=== PATIENT | female | born 1945 | race Caucasian/White ===

== ENCOUNTER → 2017-08-11 | Outpatient (CLI) | payer OTHER ==
[~2017-08-11] MED LIST: ADVIL PM CAPLE1 EACH; ASPIR 8181 MG PO; ASPIRIN; B-100 COMPLEX1 EAC1 PO; CELEBREX50 MG PO; CELEXA20 MG PO; CRESTOR20 MG PO; FEMARA2.5 MG PO; FISH OIL 1,001000 M2 PO; FISHOIL; FLAGYL500 MG PO; GABAPENTIN 100100 MG PO; GLUCOPHAGE XR500 MG PO; HYDROCHLOROTHIA25 M2 PO; INDOMETHACIN 5050 MG PO; KEFLEX500 M1 PO; LIPITOR 20 MG T20 M1 PO; LIPITOR80 MG PO; LISINOPRIL20 MG PO; LOPRESSOR100 M1 PO; LOPRESSOR25 PO; MECLIZINE HCL25 M1 PO; NEXIUM40 MG PO; NORCO 5-325 TA1 EAC1 PO; NORVASC 5 MG TAB5 MG PO; NORVASC10 MG PO; OXYCODONE HCL 55 MG PO; PERCOCET 5-3251 EACH PO; PIOGLITAZONE15 MG PO; PROTONIX40 M2 PO; TRAMADOL 50 MG50 MG PO; TRICOR145 MG PO; TUMS PO; VICODIN; VITAMIN B-12500 MCG PO; VITAMIN C + RO500 MG PO; VITAMIN D2000 UNIT PO; VITAMIN D400 UNI1 PO; ZOFRAN ODT4 MG PO
== END ==
LOC: M.RAD 09:49
DX: Z12.31 Encounter for screening mammogram for malignant neoplasm of breast (principal)

== ENCOUNTER → 2017-08-18 | Outpatient (CLI) | payer OTHER | LOC: M.RAD 08-14 13:27 | DX: R92.8 Other abnormal and inconclusive findings on diagnostic imaging of breast (principal) ==

== ENCOUNTER 2017-12-05 08:53 | Inpatient (IN) | payer OTHER ==
[~2017-12-05] VITALS: Ht 160 cm; Wt 80.3 kg
[2017-12-05 11:12] VITALS: BP 169/67
[2017-12-05 11:21] LABS: CALCIUM 9.1 mg/dL (8.5-10.1); CREATININE 0.8 mg/dL (0.6-1.3); POTASSIUM 3.7 mmol/L (3.5-5.1)
[2017-12-05 11:34] LABS: ABSOLUTE BASOPHILS 0.1 thou/uL (0.0-0.2); ABSOLUTE EOSINOPHILS 0.2 thou/uL (0.0-0.7); ABSOLUTE LYMPHOCYTES 2.1 thou/uL (0.8-5.3); ABSOLUTE MONOCYTES 0.7 thou/uL (0.0-1.2); ABSOLUTE NEUTROPHILS 6.4 thou/uL (1.6-8.1); BASOPHILS 0.7 %; EOSINOPHILS 2.3 %; HEMOGLOBIN 14.5 gm/dL (12.0-15.0); LYMPHOCYTES 22.3 %; MCH 31.2 pg (26.0-34.0); MCHC 32.9 g/dL (28.0-37.0); MCV 94.8 fL (80.0-100.0); MONOCYTES 7.4 %; NUCLEATED RBCS 0 /100WBC; PLATELET COUNT* 239 thou/uL (150-400); POLYS 67.3 %; RBC 4.65 mil/uL (4.20-5.00); RDW-CV 13.8 % (10.5-14.5); WBC 9.6 thou/uL (4.0-11.0)
--- NOTE | 2017-12-05 14:37 | EKG ---
[place] [address] ELECTROCARDIOGRAM REPORT Name: MARGARITAKERMITHARPREET Room: [place] [address] ADM IN M.R.#: [id number] Admission: 12/05/17 Attend Phys: Lilly Powell Discharge: Date of : 49 Report #: [id number] THIS REPORT FOR: //name// [facility] Test Date: 2017-12-05 Test Time: 10:54:38 Pat Name: HARPREET STEPHENSON Department: Room: [place] [address] Gender: F Stock Clipper: : 1945 Requested By: Osman Garza Order Number: [id number] Reading MD: Irving Montes De Oca Measurements Intervals [place] Rate: 75 P: 38 NM: 156 QRS: 59 QRSD: 98 T: 84 QT: 387 QTc: 433 Interpretive Statements Sinus rhythm Atrial premature complexes Compared to ECG 02/03/2016 15:55:03 Atrial premature complex(es) now present T-wave abnormality no longer present Electronically Signed On 12-05-2017 14:37:33 CDT by Irving Montes De Oca [email or web address] <ELECTRONICALLY SIGNED> By: Irving Montes De Oca MD, [facility] 12/05/17 1437 1054 1054 Irving Montes De Oca MD, [facility] /EPI
--- NOTE | 2017-12-05 19:25 | NUR ---
PATIENT ADMITTED FROM OR ALERT DENIES DISTRESS.
[2017-12-05 22:00] VITALS: BP 130/75
--- NOTE | 2017-12-06 01:24 | NUR ---
LEFT RAD ART LINE REMOVED- PATIENT TOLERATED WELL. NO BLEEDING. COVERED WITH STERILE DRESSING. CAP REFIL <3 SEC. WCTM.
[2017-12-06 02:00] VITALS: BP 133/56
--- NOTE | 2017-12-06 04:36 | NUR ---
END SHIFT: PT RESTED WELL. PAIN WELL CONTROLLED WITH IV PAIN MEDICATION. SR/SB ON MONITOR. CO2 MONITOR REMAINS IN PLACE. TITRATED TO 2L NC. TOLERATING WELL. ICE PACK TO RIGHT NECK FOR COMFORT. AWAITING DC TODAY. SAFETY PRECAUTIONS IN PLACE. VSS. PERFORMED HOURLY ROUNDING. WILL CONT TO MONITOR.
--- NOTE | 2017-12-06 07:30 | NUR ---
Pt resting in bed, appears alert o x 4, denies chest pain, SOB, states minimal pain to r neck incisional site. Wound inact with ermabond dressing, sb/sr on monitor
[2017-12-06 09:00] VITALS: BP 143/59
[2017-12-06 09:46] LABS: HEMATOCRIT 39.6 % (37.0-47.0); HEMOGLOBIN 13.1 gm/dL (12.0-15.0); MCH 31.2 pg (26.0-34.0); MCHC 33.1 g/dL (28.0-37.0); MCV 94.5 fL (80.0-100.0); MPV 9.7 fl. (7.2-11.1); RBC 4.2 mil/uL (4.20-5.00); RDW-CV 13.8 % (10.5-14.5); WBC 12.6 thou/uL (4.0-11.0)
[2017-12-06 10:10] LABS: ALBUMIN 3.2 g/dL (3.4-5.0); ALKALINE PHOSPHATASE 114 U/L (46-116); ANION GAP 7 mmol/L (7-16); BUN 14 mg/dL (7-18); CALCIUM 8.3 mg/dL (8.5-10.1); CHLORIDE 102 mmol/L (98-107); CO2 25 mmol/L (21-32); CREATININE 0.8 mg/dL (0.6-1.3); GLUCOSE 176 mg/dL (70-99); MAGNESIUM 1.6 mg/dL (1.8-2.4); POTASSIUM 3.9 mmol/L (3.5-5.1); SGOT 21 U/L (15-37); SGPT 28 U/L (30-65); SODIUM 134 mmol/L (136-145); TOTAL BILIRUBIN 0.6 mg/dL (<0.1-1.0); TOTAL PROTEIN 6.7 g/dL (6.4-8.2); TROPONIN-I LEVEL <0.06 ng/mL (<0.06)
--- NOTE | 2017-12-06 12:15 | NUR ---
MET WITH PT TO DISCUSS HOME SITUATION/DC PLANNING. PT LIVES WITH DTR. SHE IS INDEPENDENT AND ACTIVE. USES NO EQUIPMENT. DTR ONLY WORKS 4HR/DAY AND IS ABLE TO ASSIST PT NEEDED. DENIES DC NEEDS AND DECLINES HH
--- NOTE | 2017-12-06 12:24 | NUR ---
pt transferred to room 230, with all belongings, report given to Ariel GILLIAM
--- NOTE | 2017-12-06 14:30 | NUR ---
TRANSFER FROM ICU VIA W/C TO ROOM 230. REASSESSMENT COMPLETE, DEFER TO COMPUTER CHARTING. WARP YARN SORTER TRACKING SA. ALERT ORIENTED, REPORTING HAVING NECK DISCOMFORT AT INCISION SITE, WILL GIVE REPEAT PAIN MEDICATION. OREITNED TO ROOM/CALL LIGHT AND REVIEWED PLAN OF CARE, VERBALIZED UNDERSTANDING. CALL LIGHT WITHIN REACH, WILL MONITOR.
[2017-12-06 16:09] VITALS: BP 138/73
--- NOTE | 2017-12-06 16:28 | NUR ---
SURVEY TECHNOLOGIST TRACKING SR TO SA AT TIMES. UP IN CHAIR AT THIS TIME VISITING WITH FAMILY. INCISION TO NECK REMAINS CDI WITH NO SIGN OF INFECTION. NO COMPLAINTS OF DISCOMFORT AT THIS TIME. CALL LIGHT WITHIN REACH. WILL CONTINUE WITH PLAN OF CARE.
[2017-12-06 19:54] VITALS: BP 140/60
[2017-12-07 00:13] VITALS: BP 125/69
[2017-12-07 04:00] VITALS: BP 143/85
--- NOTE | 2017-12-07 04:25 | NUR ---
ASSUMED PT CARE AT 1999. NURSING ASSESSMENT COMPLETED AT START OF SHIFT. PT VOICED NO CONCERNS THIS SHIFT. ONLINE BANKING SPECIALIST IN PLACE, TRACING SINUS RHYTHM. RIGHT NECK INCISION CDI. NO S/S OF INFECTION TO SITE. HOURLY ROUNDING COMPLETED. CALL LIGHT WITHIN REACH. PT PROGRESSING TOWARDS GOALS.
[2017-12-07 05:11] LABS: HEMATOCRIT 41.2 % (37.0-47.0); HEMOGLOBIN 13.5 gm/dL (12.0-15.0); MCH 31.1 pg (26.0-34.0); MCHC 32.9 g/dL (28.0-37.0); MCV 94.7 fL (80.0-100.0); MPV 9.5 fl. (7.2-11.1); RBC 4.35 mil/uL (4.20-5.00); RDW-CV 13.5 % (10.5-14.5); WBC 11.1 thou/uL (4.0-11.0)
[2017-12-07 05:30] LABS: ALBUMIN 3.1 g/dL (3.4-5.0); ALKALINE PHOSPHATASE 111 U/L (46-116); ANION GAP 3 mmol/L (7-16); BUN 12 mg/dL (7-18); CHLORIDE 99 mmol/L (98-107); CO2 29 mmol/L (21-32); CREATININE 0.7 mg/dL (0.6-1.3); GLUCOSE 166 mg/dL (70-99); MAGNESIUM 1.6 mg/dL (1.8-2.4); POTASSIUM 3.6 mmol/L (3.5-5.1); SGOT 28 U/L (15-37); SGPT 21 U/L (30-65); SODIUM 131 mmol/L (136-145); TOTAL BILIRUBIN 0.8 mg/dL (<0.1-1.0); TOTAL PROTEIN 7.1 g/dL (6.4-8.2); TROPONIN-I LEVEL <0.06 ng/mL (<0.06)
[2017-12-07 11:54] VITALS: BP 119/42
[2017-12-07 15:45] VITALS: BP 139/73
[2017-12-07 16:34] VITALS: BP 139/73
--- NOTE | 2017-12-19 16:02 | OP ---
[facility] [address] [place] [address] OPERATIVE REPORT Name: SEEMAHARPREET PAMELA Room: [address] IN M.R.#: [id number] Admission: 12/05/17 Attend Phys: Lilly Powell Discharge: 12/07/17 Date of : 49 Report #: [id number] THIS REPORT FOR: //name// CC: Irving Rothman DATE OF SERVICE: 12/05/2017 PREOPERATIVE DIAGNOSIS: Asymptomatic right carotid stenosis greater than 70%. POSTOPERATIVE DIAGNOSIS: Asymptomatic right carotid stenosis greater than 70%. SURGEON: Osman Garza DO. TROUBLE DISPATCHER: FELA Cabrera ANESTHESIA: General endotracheal anesthesia. PROCEDURES: 1. Right carotid endarterectomy with bovine pericardial patch angioplasty. 2. Intraoperative carotid duplex. Please see saved images. ESTIMATED BLOOD LOSS: 100 mL. SPECIMEN: Plaque. COMPLICATIONS: None. CONDITION: Stable. DISPOSITION: ICU. INDICATIONS FOR THE PROCEDURE AND CONSENT: The patient is a 72-year-old female who presented with bilateral carotid stenosis, right worse than left. The right was greater than 70% and left was 50-69%. Recommendation for right carotid endarterectomy was made. Risks and benefits were discussed, infection, bleeding, nerve injury, stroke, heart attack and . The patient wished to proceed, was consented and scheduled. PROCEDURE IN DETAIL: After timeout was performed, the patient was placed in supine position with sterile prep and drape of the anterior neck and chest wall. A semi-transverse incision was made in anterior sternocleidomastoid and dissection was carried down using Bovie electrocautery and Metzenbaum scissors were used to open the carotid sheath. The facial vein was divided between silk sutures. Common carotid artery was controlled proximally with a [facility] [address] [place] [address] OPERATIVE REPORT Name: HARPREET STEPHENSON Room: [address]#: [id number] Admission: 12/05/17 Attend Phys: Lilly Powell Discharge: 12/07/17 Date of : 49 Report #: [id number] tourniquet. The internal carotid artery was controlled posteriorly with small vessel loops. The external carotid artery was controlled with a large vessel loop in Holbrook fashion. The patient was systemically heparinized with 6000 units of heparin. The hypoglossal nerve was identified and noted to be preserved. The clamps were then applied to the internal, common and external carotid artery respectively and the 11 blade and Holbrook scissors were used to make a longitudinal arteriotomy beyond the area of the plaque. This had to be extended later approximately 1 cm to allow for full removal of the plaque. A plaque elevator was then used to separate the plaque from the wall and divided with Holbrook scissors and then endarterectomized using the plaque elevator and everting the external carotid artery. It did not taper well initially. It appeared to be a residual clot distally. I extended the arteriotomy approximately 1 cm and then was able to remove additional plaque and had a nice tapered end point. This was tested with heparinized saline and noted to be fixed without any mobile flaps. I then meticulously cleaned the endarterectomized portion after utilizing forceps. After I was satisfied with the endarterectomized portion, a 6-0 Prolene suture was used to place a patch and sewn in circumferentially. Prior to complete closure, the shunt was removed first from the common carotid artery, noted to be backbleeding well and then the clamp was applied to internal carotid artery and the shunt was removed. The endarterectomized portion was then copiously irrigated with heparinized saline and the external and common carotid arteries were allowed to flush to remove any occult debris. I then once more irrigated and I then closed the patch. Once I was satisfied with the patch closure, I then allowed blood flow through the external carotid artery and also at the internal carotid artery. The patch was noted to be hemostatic and did not require any repair sutures. I then performed an intraoperative duplex, which demonstrated that common, internal and external carotid arteries were patent. The external did have significant debris beyond its origin. Nonetheless, did have flow and the waveforms appeared appropriate for the internal, external and common carotid vessels. B-mode imaging demonstrated no debris within the internal carotid artery or the common carotid vessel. Being satisfied with the repair, the wound was copiously irrigated. The patient was administered 50 units of protamine and the wound was closed in layers using 2-0 Vicryl, 3-0 Vicryl and 4-0 Monocryl suture. Dermabond dressing was applied. The patient tolerated the procedure well. Lap, needle and instrument counts correct. <ELECTRONICALLY SIGNED> By: Osman Garza DO 12/19/17 1602 1718 1800Osman Garza DO /nt
--- NOTE | 2018-01-16 14:52 | PATH ---
[facility] [address] [place] [address] PATHOLOGY RPT PROCEDURE Name: BRIONNA SORIA Room: [address] IN .R.#: [id number] Admission: 12/05/17 Date of : 49 Discharge: 12/07/17 Report #: [id number] Path Case #: [id number] [facility] Accession Number: [id number] . 01 Material submitted: . RIGHT CAROTID PLAQUE . 01 Clinician provided ICD-10: I65.21 . 01 Clinical history: . Right carotid stenosis. . 02 Diagnosis: Right carotid plaque: - Calcified atheromatous plaque. . (MAP:at;11/24/2017) QTA/12/08/2017 . 02 Electronically signed: . Paul Alegria MD, Pathologist NPI- [id number] . 01 Gross description: . Received in formalin labeled "Brionna Soria, right carotid plaque" is a tubular portion of kent-white rubbery tissue measuring 2.6 cm in length and 1.2 cm in diameter. The specimen is sectioned to reveal that it is comprised of approximately 25% calcifications. Float Operator sections are submitted in cassette A1 following decalcification. ([facility]; 12/07/2017) SYC/SYC . 02 Pathologist provided ICD-10: I65.21 . 02 CPT . 379209, [id number] Specimen Comment: Report sent to ,DR WILLIAMSON,DR SETHI / DR OSULLIVAN Performed at: [address], [place], [place] [id number] MD Nilton De Jesus MD Phone: [phone] Performed at: 02 [facility] [address], [place], [place] [address] MD Senthil Burgos MD Phone: [phone]
== END 2017-12-07 17:20 | disposition home or self-care (01) | DRG 38 ==
LOC: M.PRE 08:53 → M.TBA 10:22 → M.2W 10:22 → M.PRE 14:03 → M.ICU 16:54 → M.2W 12-06 12:06
PROVIDERS: Family Medicine; Surgery; ADMIT Internal Medicine
PROC: 03UK0KZ Supplement Right Internal Carotid Artery with Nonautologous Tissue Substitute, Open Approach (ICD-10-PCS; principal; 2017-12-05)
PROC: 03CK0ZZ Extirpation of Matter from Right Internal Carotid Artery, Open Approach (ICD-10-PCS; principal; 2017-12-05)
DX: I65.21 Occlusion and stenosis of right carotid artery (principal); E87.1 Hypo-osmolality and hyponatremia; I10 Essential (primary) hypertension; E11.40 Type 2 diabetes mellitus with diabetic neuropathy, unspecified; M19.90 Unspecified osteoarthritis, unspecified site; F17.210 Nicotine dependence, cigarettes, uncomplicated; I25.10 Atherosclerotic heart disease of native coronary artery without angina pectoris; R09.02 Hypoxemia; E83.42 Hypomagnesemia; Z88.2 Allergy status to sulfonamides; Z88.8 Allergy status to other drugs, medicaments and biological substances; Z90.49 Acquired absence of other specified parts of digestive tract; Z85.3 Personal history of malignant neoplasm of breast; Z90.11 Acquired absence of right breast and nipple; Z90.710 Acquired absence of both cervix and uterus; Z92.21 Personal history of antineoplastic chemotherapy; Z79.82 Long term (current) use of aspirin; Z79.899 Other long term (current) drug therapy; Z28.21 Immunization not carried out because of patient refusal

== ENCOUNTER → 2017-12-25 | Outpatient (CLI) | payer OTHER | LOC: M.RAD 14:17 | DX: M85.89 Other specified disorders of bone density and structure, multiple sites (principal); Z78.0 Asymptomatic menopausal state; Z85.3 Personal history of malignant neoplasm of breast ==

== ENCOUNTER → 2018-02-25 | Outpatient (CLI) | payer OTHER | LOC: M.RAD 12:16 | DX: R92.8 Other abnormal and inconclusive findings on diagnostic imaging of breast (principal); R92.2 Inconclusive mammogram; Z85.3 Personal history of malignant neoplasm of breast ==

== ENCOUNTER 2018-03-15 20:26 | Emergency (ER) | payer OTHER ==
[~2018-03-15] VITALS: Ht 157.5 cm; Wt 83.9 kg
[2018-03-15] MEDS ORDERED: GLYBURIDE 2.52.5 MG PO (20:44)
[2018-03-15 20:59] LABS: ABSOLUTE BASOPHILS 0.1 thou/uL (0.0-0.2); ABSOLUTE EOSINOPHILS 0.2 thou/uL (0.0-0.7); ABSOLUTE LYMPHOCYTES 2.7 thou/uL (0.8-5.3); ABSOLUTE MONOCYTES 0.9 thou/uL (0.0-1.2); ABSOLUTE NEUTROPHILS 6.5 thou/uL (1.6-8.1); EOSINOPHILS 2.4 %; HEMATOCRIT 44.7 % (37.0-47.0); MCHC 33.6 g/dL (28.0-37.0); MCV 92.3 fL (80.0-100.0); MONOCYTES 8.3 %; MPV 9.7 fl. (7.2-11.1); NUCLEATED RBCS 0 /100WBC; PLATELET COUNT* 257 thou/uL (150-400); POLYS 62.3 %; RBC 4.85 mil/uL (4.20-5.00); WBC 10.5 thou/uL (4.0-11.0)
[2018-03-15 21:20] LABS: ANION GAP 11 mmol/L (7-16); BUN 14 mg/dL (7-18); CALCIUM 10.1 mg/dL (8.5-10.1); CHLORIDE 99 mmol/L (98-107); CO2 28 mmol/L (21-32); CREATININE 0.8 mg/dL (0.6-1.3); GLUCOSE 178 mg/dL (70-99); POTASSIUM 3.4 mmol/L (3.5-5.1); SODIUM 138 mmol/L (136-145)
[2018-03-15 21:27] LABS: URINE BILIRUBIN NEGATIVE (Negative); URINE BLOOD TRACE (Negative); URINE CLARITY CLEAR; URINE COLOR YELLOW; URINE GLUCOSE-RANDOM NEGATIVE (Negative); URINE KETONES NEGATIVE (Negative); URINE LEUKOCYTES-REFLEX NEGATIVE (Negative); URINE NITRITE-REFLEX NEGATIVE (Negative); URINE PROTEIN NEGATIVE (Negative); URINE SPECIFIC GRAVITY <= 1.005 (1.005-1.030); URINE UROBILINOGEN 0.2 E.U./dl (0.2-1.0)
[2018-03-15 21:31] LABS: ALBUMIN 3.5 g/dL (3.4-5.0); ALKALINE PHOSPHATASE 158 U/L (46-116); NT-PRO BRAIN NAT PEPTIDE 139 pg/mL (<300); SGOT 20 U/L (15-37); SGPT 24 U/L (30-65); TOTAL BILIRUBIN 0.4 mg/dL (<0.1-1.0); TOTAL PROTEIN 7.9 g/dL (6.4-8.2); TROPONIN-I LEVEL <0.06 ng/mL (<0.06)
[2018-03-15] MEDS ORDERED: PREDNISONE 20 M20 MG PO (21:44)
[2018-03-15 21:58] VITALS: BP 115/60
[2018-03-15 22:32] LABS: BACTERIA-REFLEX None Seen /HPF (None Seen); CASTS None Seen /LPF (None Seen); CRYSTALS None Seen /LPF (None Seen); SQUAMOUS 0-3 Few /LPF (0-3); URINE RBC None Seen /HPF (0-2); URINE WBC-REFLEX None Seen /HPF (0-5)
--- NOTE | 2018-03-16 16:27 | EKG ---
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: Lisbet CABA : 1945 Requested By: Allie Garza Order Number: [id number] MD: Irving Montes De Oca Measurements Intervals [place] Rate: 69 P: 50 MO: 160 QRS: 57 QRSD: 100 T: 83 QT: 408 QTc: 437 Interpretive Statements Sinus rhythm with sinus arrhythmi Nonspecific T abnormalities, lateral leads Baseline wander in lead(s) V2 Compared to ECG 12/05/2017 10:54:38 T-wave abnormality now present Electronically Signed On 03-16-2018 16:27:26 INVESTIGATION DIVISION SERGEANT by Irving Montes De Oca [email or web address] <ELECTRONICALLY SIGNED> By: Irving Montes De Oca MD, [facility] 03/16/18 1627 57 57 Irving Montes De Oca MD, [facility] /EPI
== END 2018-03-15 21:58 | disposition home or self-care (01) ==
LOC: M.ERS 20:26
PROVIDERS: Nurse Practitioner Family
DX: J20.9 Acute bronchitis, unspecified (principal); I10 Essential (primary) hypertension; M19.90 Unspecified osteoarthritis, unspecified site; E11.40 Type 2 diabetes mellitus with diabetic neuropathy, unspecified; Z88.6 Allergy status to analgesic agent; Z88.2 Allergy status to sulfonamides; Z88.8 Allergy status to other drugs, medicaments and biological substances; Z95.5 Presence of coronary angioplasty implant and graft; Z90.49 Acquired absence of other specified parts of digestive tract; Z85.3 Personal history of malignant neoplasm of breast; Z90.710 Acquired absence of both cervix and uterus

== ENCOUNTER → 2018-08-10 | Outpatient (CLI) | payer OTHER ==
[~2018-08-10] MED LIST changes: +GLYBURIDE 2.52.5 MG PO; +PREDNISONE 20 M20 MG PO
== END ==
LOC: M.RAD 12:18
DX: R92.2 Inconclusive mammogram (principal); R92.8 Other abnormal and inconclusive findings on diagnostic imaging of breast; Z85.3 Personal history of malignant neoplasm of breast

== ENCOUNTER → 2019-01-19 | Outpatient (CLI) | payer OTHER ==
[~2019-01-19] MED LIST changes: +BIOTIN2500 MCG PO; +GLUCOSAMINE HC500 MG PO; +HYZAAR 50-12.51 EACH PO; +OPTIFLEX-C400 MG PO; +PROBIOTIC1 EAC1 PO; +TUMERIC/CURCUMIN; +VITAMIN B-1100 M1 PO
== END ==
LOC: M.RAD 01-12 09:00
DX: M85.89 Other specified disorders of bone density and structure, multiple sites (principal); Z85.3 Personal history of malignant neoplasm of breast; Z78.0 Asymptomatic menopausal state

== ENCOUNTER → 2019-08-19 | Outpatient (CLI) | payer MEDICARE, OTHER ==
[~2019-08-19] MED LIST changes: +DOXYCYCLINE 10100 MG PO; +GLUCOPHAGE XR500 M1 PO; -GLUCOPHAGE XR500 MG PO; +NEURONTIN 300M300 M2 PO
== END ==
LOC: M.RAD 10:00
PROVIDERS: ATTEND Internal Medicine Hematology & Oncology
DX: Z12.31 Encounter for screening mammogram for malignant neoplasm of breast (principal)

== ENCOUNTER 2019-08-25 14:49 | Emergency (ER) | payer MEDICARE, OTHER ==
[~2019-08-25] VITALS: Ht 157.5 cm; Wt 79.4 kg
[~2019-08-25 14:49] MED LIST changes: -DOXYCYCLINE 10100 MG PO; -NEURONTIN 300M300 M2 PO
[2019-08-25 15:48] LABS: ABSOLUTE BASOPHILS 0.1 thou/uL (0.0-0.2); ABSOLUTE EOSINOPHILS 0.2 thou/uL (0.0-0.7); ABSOLUTE LYMPHOCYTES 2.4 thou/uL (0.8-5.3); ABSOLUTE MONOCYTES 0.8 thou/uL (0.0-1.2); ABSOLUTE NEUTROPHILS 7.3 thou/uL (1.6-8.1); BASOPHILS 1.2 %; EOSINOPHILS 1.6 %; HEMATOCRIT 44.1 % (37.0-47.0); HEMOGLOBIN 15.3 gm/dL (12.0-15.0); LYMPHOCYTES 21.9 %; MCHC 34.6 g/dL (28.0-37.0); MCV 92.3 fL (80.0-100.0); MONOCYTES 7.4 %; MPV 10.4 fl. (7.2-11.1); NUCLEATED RBCS 0 /100WBC; PLATELET COUNT* 234 thou/uL (150-400); POLYS 67.9 %; RBC 4.78 mil/uL (4.20-5.00); RDW-CV 13.6 % (10.5-14.5); WBC 10.8 thou/uL (4.0-11.0)
[2019-08-25 16:04] LABS: CALCIUM 8.8 mg/dL (8.5-10.1); CREATININE 0.9 mg/dL (0.6-1.3); POTASSIUM 3.6 mmol/L (3.5-5.1)
[2019-08-25 16:08] LABS: ALBUMIN 3.5 g/dL (3.4-5.0); TOTAL BILIRUBIN 0.7 mg/dL (<0.1-1.0); TOTAL PROTEIN 6.6 g/dL (6.4-8.2)
[2019-08-25] MEDS ORDERED: DOXYCYCLINE 10100 MG PO (16:25)
[2019-08-25] MEDS ORDERED: TRAMADOL 50 MG50 MG PO (16:26)
[2019-08-25 16:38] VITALS: BP 189/78
== END 2019-08-25 16:39 | disposition home or self-care (01) ==
LOC: M.ERS 14:49
PROVIDERS: Nurse Practitioner Family
DX: L03.116 Cellulitis of left lower limb (principal); F17.210 Nicotine dependence, cigarettes, uncomplicated; E11.21 Type 2 diabetes mellitus with diabetic nephropathy; I10 Essential (primary) hypertension; M19.90 Unspecified osteoarthritis, unspecified site; Z88.2 Allergy status to sulfonamides; Z79.82 Long term (current) use of aspirin; Z79.84 Long term (current) use of oral hypoglycemic drugs; Z88.6 Allergy status to analgesic agent; Z88.8 Allergy status to other drugs, medicaments and biological substances; Z90.710 Acquired absence of both cervix and uterus

== ENCOUNTER 2019-08-27 11:05 | Inpatient (IN) | payer MEDICARE, OTHER ==
[~2019-08-27] VITALS: Ht 157.5 cm; Wt 80.7 kg
[~2019-08-27 11:05] MED LIST changes: +DOXYCYCLINE 10100 MG PO
[2019-08-27 11:16] VITALS: BP 158/86
--- NOTE | 2019-08-27 11:49 | NUR ---
IV ACCESS TEAM CONTACTED TO PLACE A PICC LINE, PT HAS A LIMB ALERT, AND A HISTORY OF DIFFICULT ACCESS. PT IS BEING ADMITTED FOR IV ANTIBIOTIC THERAPY, AND BLOOD MONITORING.
[2019-08-27 13:36] LABS: ABSOLUTE BASOPHILS 0.1 thou/uL (0.0-0.2); ABSOLUTE EOSINOPHILS 0.1 thou/uL (0.0-0.7); ABSOLUTE LYMPHOCYTES 1.9 thou/uL (0.8-5.3); ABSOLUTE MONOCYTES 0.9 thou/uL (0.0-1.2); ABSOLUTE NEUTROPHILS 7.8 thou/uL (1.6-8.1); BASOPHILS 0.8 %; EOSINOPHILS 1.1 %; HEMOGLOBIN 14.4 gm/dL (12.0-15.0); MCH 31.5 pg (26.0-34.0); MCHC 34.2 g/dL (28.0-37.0); MCV 92.1 fL (80.0-100.0); MONOCYTES 8.5 %; MPV 10.6 fl. (7.2-11.1); NUCLEATED RBCS 0 /100WBC; PLATELET COUNT* 228 thou/uL (150-400); POLYS 71.6 %; RBC 4.56 mil/uL (4.20-5.00); RDW-CV 13.6 % (10.5-14.5); WBC 10.9 thou/uL (4.0-11.0)
--- NOTE | 2019-08-27 13:46 | EKG ---
[place] [address] ELECTROCARDIOGRAM REPORT Name: HARPREET STEPHENSON Room: [place] [address] ADM IN [facility]#: [id number] Admission: 08/27/19 Attend Phys: Denisa Jackson, Discharge: Date of : 49 Date of Service: 08/27/19 1251 Report #: [id number] THIS REPORT FOR: //name// [facility] ED Test Date: 2019-08-27 Test Time: 12:51:00 Pat Name: HARPREET STEPHENSON Department: Room: [facility] Gender: F Hand Candy Cutter: : 1945 Requested By: Natan Owens Order Number: [id number] MD: Clinton House Measurements Intervals [place] Rate: 81 P: 73 FL: 151 QRS: 55 QRSD: 103 T: 54 QT: 385 QTc: 447 Interpretive Statements Sinus rhythm Atrial premature complex Borderline T wave abnormalities Baseline wander in lead(s) V5 Compared to ECG 09/05/2018 17:06:19 Atrial premature complex(es) now present Electronically Signed On 08-27-2019 13:45:25 CDT by Clinton House [email or web address] <ELECTRONICALLY SIGNED> By: Clinton House MD, FAC 08/27/19 1345 1251 1251 Clinton House MD, FAC /EPI
[2019-08-27 13:47] LABS: APTT 25.6 Seconds (25.0-31.3); PROTIME 10.5 Seconds (9.20-11.50)
[2019-08-27 13:56] LABS: CALCIUM 8.7 mg/dL (8.5-10.1); CREATININE 0.7 mg/dL (0.6-1.3); POTASSIUM 3.3 mmol/L (3.5-5.1)
[2019-08-27 14:01] LABS: ALBUMIN 3.3 g/dL (3.4-5.0); TOTAL BILIRUBIN 0.8 mg/dL (<0.1-1.0)
--- NOTE | 2019-08-27 14:02 | NUR ---
LEFT BASILIC VESSEL ACCESSED FOR SINGLE LUMEN POWER PICC. RIGHT ARM HX OF MASTECTOMY NOTED. LINE PRE-TRIMMED TO 45 CM AND ADVANCED TO THE ZERO ARTEMIO WITH NO RESISTANCE MET. UPPER AMR CIRCUMFERENCE ABOVE INSERTION SITE=13". SHERLLOCK MAGNET AND 3CG CONFIRMATION OF TIP TERMINATION AT THE CAVOATRIAL JUNCTION APPRECIATED. GUIDEWIRE REMOVED, LINE FLUSHED AND INSERTION SITE DRESSED. REPORT GIVEN TO DR. JOSEPH.
[2019-08-27 14:35] VITALS: BP 206/96
[2019-08-27 15:00] VITALS: BP 188/89
[2019-08-27] MEDS ORDERED: NEURONTIN 300M300 M2 PO (19:25)
--- NOTE | 2019-08-27 19:53 | NUR ---
PATIENT ARRIVED FROM ER THIS AFTERNOON. PATIENT SETTLED TO ROOM. HISTORY, ASSESSMENT AND VITALS COMPLETED AND DOCUMENTED. PATIENT HAS COMPLAINTS OF PAIN TO LEFT LE. PATIENT IS UP WITH ASSIST FOR TRANSFER. PATIENT HAS GOOD APPETITE. CALL LIGHT WITHIN REACH. WILL CONTINUE TO MONITOR.
[2019-08-27 20:51] VITALS: BP 174/74
--- NOTE | 2019-08-28 05:10 | NUR ---
PT SLEPT WELL OFF AND ON OVERNIGHT. UP TO BSC TO VOID WITHOUT DIFFICULTY. LEO PICC SL, ABX GIVEN ORDERED. RECEIVING PRN TRAMADOL FOR PAIN WITH GOOD RELIEF. LLE EDEMA AND REDNESS, PAIN WITH WEIGHT BEARING. L LIMB ALERT. AOX4, ABLE TO USE CALL LITE AND MAKE NEEDS KNOWN. MRSA NASAL SWAB SENT TO LAB, ON CONTACT ISOLATION PENDING RESULTS.
[2019-08-28 08:30] VITALS: BP 150/61
[2019-08-28 10:41] LABS: HEMATOCRIT 41.1 % (37.0-47.0); MCH 31.4 pg (26.0-34.0); MCHC 33.9 g/dL (28.0-37.0); MCV 92.4 fL (80.0-100.0); MPV 10.5 fl. (7.2-11.1); RBC 4.45 mil/uL (4.20-5.00); RDW-CV 13.4 % (10.5-14.5); WBC 9.1 thou/uL (4.0-11.0)
[2019-08-28 10:59] LABS: CALCIUM 8.9 mg/dL (8.5-10.1); POTASSIUM 3.6 mmol/L (3.5-5.1)
[2019-08-28 16:00] VITALS: BP 134/65
--- NOTE | 2019-08-28 19:05 | NUR ---
ALERT AND ORIENTED X4. UP AD NOEL IN ROOM. LEFT LOWER EXTREMITY REMAIN SLIGHTLY PINK AND SWOLLEN. DIET CHANGED TO DIABETIC DIET. PO PAIN MEDICATION GIVEN AND HELPFUL WITH LEG PAIN. CONTINUES ON IV ANTIBIODICS WITHOUT ADVERSE REACHTIONS OR SIDE EFFECTS. USES CALL LIGHT WITHIN REACH.
[2019-08-28 20:00] VITALS: BP 138/78
--- NOTE | 2019-08-29 05:24 | NUR ---
PT HAS SLEPT WELL OVERNIGHT, RECEIVING PO PAIN MED AT HS FOR L FOOT PAIN WITH GOOD RELIEF. LEO PICC SL, ABX GIVEN ORDERED. UP TO BSC OVERNIGHT TO VOID WITHOUT DIFFICULTY. TUBIGRIP IN PLACE TO LLE. HAS BEEN NPO SINCE MIDNIGHT FOR CTA BLE THIS MORNING. REMAINS ON CONTACT ISOLATION PENDING MRSA NASAL SWAB RESULTS. BM THIS SHIFT. ABLE TO USE CALL LITE AND MAKE NEEDS KNOWN.
[2019-08-29 09:00] VITALS: BP 151/80
--- NOTE | 2019-08-29 16:56 | NUR ---
ALERT AND ORIENTED X4. UP AD NOEL IN ROOM. MRSA SWAB NEGATIVE. POSTOP SHOE TAKEN TO PATIENT'S ROOM. CONTINUES TO RECEIVE IV ANTIBIODICS WITH NO ADVERSE REACTIONS OR SIDE EFFECTS. PO PAIN MEDICATION GIVEN THIS AM AND HELPFUL FOR LEG PAIN. TUBIGRIP ON LEFT LEG. USES CALL LIGHT WHEN NEEDING ASSIST.
[2019-08-29 17:20] VITALS: BP 143/71
[2019-08-30 02:06] LABS: GLYCOHEMOGLOBIN (HGB A1C) 6.8 % (4.8-5.6)
--- NOTE | 2019-08-30 05:26 | NUR ---
PT SLEPT WELL OVERNIGHT, DENIES NEED FOR PAIN MED THIS SHIFT. L KNEE WITH DOLLY WRAP AND ICE PACK PER PT REQUEST. UP INDEP TO BSC TO VOID WITHOUT DIFFICULTY. LEO PICC IVF INFUSING PER PUMP, ABX GIVEN ORDERED. TUBIGRIP INTACT TO LLEG. AM LABS. R LIMB ALERT. POST OP SHOE IN ROOM FOR AMBULATION. ABLE TO USE CALL LITE AND MAKE NEEDS KNOWN.
[2019-08-30 06:55] LABS: HEMATOCRIT 40.5 % (37.0-47.0); HEMOGLOBIN 13.7 gm/dL (12.0-15.0); MCH 31.2 pg (26.0-34.0); MCHC 33.8 g/dL (28.0-37.0); MCV 92.4 fL (80.0-100.0); MPV 10.5 fl. (7.2-11.1); RBC 4.38 mil/uL (4.20-5.00); RDW-CV 13.9 % (10.5-14.5); WBC 8.7 thou/uL (4.0-11.0)
[2019-08-30 07:15] LABS: ALBUMIN 2.7 g/dL (3.4-5.0); CALCIUM 8.7 mg/dL (8.5-10.1); CREATININE 0.7 mg/dL (0.6-1.3); MAGNESIUM 1.4 mg/dL (1.8-2.4); POTASSIUM 3.6 mmol/L (3.5-5.1); TOTAL BILIRUBIN 0.5 mg/dL (<0.1-1.0); TOTAL PROTEIN 6.5 g/dL (6.4-8.2)
[2019-08-30 07:58] VITALS: BP 179/84
--- NOTE | 2019-08-30 14:54 | NUR ---
Nutirtion: consult for cellulitis. Pt wt stable past 2 years, obesity noted. Nsg noted pt with good appetite. ALbumin 2.7. Bg 119-183. Meds reviewed. No wounds noted. Assess at low nutrition risk.
--- NOTE | 2019-08-30 16:29 | NUR ---
SW met with pt to complete initial assessment, introduce self, and SW role. Pt alert, oriented, pleasant. Pt now lives with her son in [place] and had stayed with her dtr previously. Pt said she just retired in June of this year. Pt does not have hx HH. Pt has cane and borrowed crutches but says she does not do well with crutches and does not like the feeling of the crutches in her armpits. Pt says she is sensitive there due to hx of breast cancer. Pt to try special shoe tonight to see if this helps with the pain in her foot while walking. Pt does not have RW or knee scooter and she hopes not to have a knee scooter. Pt does not have wc. Pt says she plans to report back to Dr Jackson tomorrow about how she does with the shoe and SW will follow up as well about possible need for knee scooter; pt also wondered if wrist type cane/crutches would work but SW was not sure pt would qualify for that or would even work as crutches in her situation; pt wanted to ask Dr Jackson anyway. SW to continue to follow to assist with safe dc planning.
--- NOTE | 2019-08-30 17:25 | NUR ---
PT WORKED WITH PT TODAY. WALKED WITH SURGICAL SHOE AND REPORTED DECREASED PAIN WITH IT. UP TO BSC. DENIES NEED FOR PAIN MEDICATION. PROGRESSING TOWARDS GOALS.
[2019-08-30 17:45] VITALS: BP 152/68
[2019-08-30 20:15] VITALS: BP 176/81
--- NOTE | 2019-08-30 20:15 | NUR ---
RESTING QUIETLY IN BED AND WATCHING TV. IV FLUIDS INFUSING PER LEFT UPPER ARM PICC LINE WITHOUT DIFFICULTY. DENIES PAIN. TRANSFERS TO BEDSIDE COMMODE INDEPEDENTLY. TUBIGRIP ON LEFT LEG DRY/INTACT. SNACK PROVIDED. CALL LIGHT WITHIN REACH.
--- NOTE | 2019-08-31 06:20 | NUR ---
RESTED QUIETLY. BLOOD DRAWN FROM PICC FOR LAB. HOURLY ROUNDING IN PROGRESS.
[2019-08-31 09:42] VITALS: BP 151/78
[2019-08-31] MEDS ORDERED: KEFLEX500 M1 PO (10:16)
[2019-08-31] MEDS ORDERED: NEURONTIN 300M300 M2 PO (10:16)
[2019-08-31 10:41] VITALS: BP 151/78
--- NOTE | 2019-08-31 11:48 | NUR ---
Pt to dc home with son today. Pt reported to pt nurse that she does not want a knee scooter and she feels that the special shoe is sufficient. And pt, doctor, and nurse expressed no need for HH at [place].
--- NOTE | 2019-08-31 13:35 | NUR ---
ALL DISCHARGE INSTRUCTIONS EXPLAINED TO PATIENT ALL QUESTIONS ANSWERED. PATIENT VERBALIZED UNDERSTANDING OF ALL DISCHARGE INSTRUCTIONS INCLUDING NEW MEDICATION THAT SHE WILL BE TAKING AND ALL HOME MEDICATIONS THAT WERE CONTINUED. SHE DID GET A HANDOUT OVER THE NEW MEDICATION. I REMOVED THE PICC LINE ORDERED PER PROTOCAL AND PATIENT TOLERATED WELL. I HELD PRESSURE FOR 5 MINUTES AND THE PICC CATH WAS INTACT. PATIENT STATES THAT SHE IS GOING TO DRIVE HERSELF HOME AND SHE DOES LIVE WITH HER FAMILY. SHE HAS NOT TAKEN ANY PAIN MEDICATION FOR A COUPLE OF DAYS NOW. SHE IS GOING TO GO HOME WITH THE POST-OP SHOE AND A WALKER. SHE IS WAITING FOR THE WALKER AND THEN SHE WILL BE ABLE TO GO HOME.
--- NOTE | 2019-08-31 14:16 | NUR ---
PATIENT OUT TO PRIVATE VEHICLE SHE IS DRIVING HERSELF HOME. SHE HAS HER WALKER AND THE POST OP SHOE. ALL PERSONAL BELONGINGS SENT WITH HER. SHE IS ALERT AND ORIENTED X 4 AND LIVES WITH HER SON. SHE DENIED PAIN UPON DISCHARGE.
[2019-08-31 14:17] VITALS: BP 151/78
--- NOTE | 2019-09-01 12:26 | CON ---
[address] [address] CONSULTATION Name: HARPREET STEPHENSON PAMELA Room: [address] IN M.R.#: [id number] Admission: 08/28/19 Attend Phys: Denisa Jackson MD Discharge: 08/31/19 Date of : 49 Report #: [id number] THIS REPORT FOR: //name// cc: Irving Hayden John E. DO ~ THIS REPORT FOR: //name// CC: Irving Jackson DATE OF SERVICE: 08/29/2019 ORTHOPEDIC CONSULTATION HISTORY OF PRESENT ILLNESS: The patient has left leg pain and cellulitis. HISTORY OF PRESENT ILLNESS: The patient presented to [facility] for evaluation of left lower extremity pain and swelling and had been on oral antibiotics for treatment of cellulitis since Friday prior to admission. She had outpatient venous Doppler, which was negative for DVT. Symptoms progressed, the patient has had 2 other episodes of this in the recent past, which have caused very similar concerns. We are consulted for evaluation of the extra swelling to the lower extremity and knee pain and the patient states that it lasts for most of the day. It is difficult to put weight on the leg. It does have continued range of motion of the knee and ankle. Pain can last for several hours throughout the day, can get to a 8/10. A compression wrap around her lower extremity has seemed to be helping as well as the vancomycin she has been on and off over the last 2 days and has been decreasing her symptoms. PAST MEDICAL HISTORY: Abdominal pain, bronchitis, cellulitis of the left leg, gout, intractable nausea and vomiting, rib fractures, and sacral contusion. ALLERGIES: LISINOPRIL, ACETAMINOPHEN, FOSAMAX, SULFA, SULFAMETHOXAZOLE, VENLAFAXINE. VITAL SIGNS: Pulse 86, blood pressure 174/74, temperature 37.0, respirations 16. PAST SURGICAL HISTORY: Four vessel blockage with 2 stents, appendectomy, hysterectomy, breast cancer, chemotherapy, mastectomy. FAMILY HISTORY: Reviewed and no pertinent family history TOBACCO, ALCOHOL, ILLICIT DRUG USE: The patient has never used recreational drugs, currently everyday smoker of cigarettes for the last 27 years. [place] [address] CONSULTATION Name: HARPREET STEPHENSON Room: [address]#: [id number] Admission: 08/28/19 Attend Phys: Denisa Jackson MD Discharge: 08/31/19 Date of : 49 Report #: [id number] REVIEW OF SYSTEMS: CONSTITUTIONAL: Does have occasional chills, changes in appetite, malaise. Denies any fever, night sweats. EYES: No symptoms reported. EARS: No symptom reported. RESPIRATORY: No symptoms. CARDIOVASCULAR: No symptoms reported. GASTROINTESTINAL: No symptoms reported. GENITOURINARY: No symptoms reported. MUSCULOSKELETAL: Leg pain, leg swelling. SKIN: No symptoms reported. NEUROLOGIC: No symptoms reported. PSYCHIATRIC: No symptoms reported. ENDOCRINE: No symptoms reported. HEMATOLOGIC AND LYMPHATIC: No symptoms reported. ALLERGIES: No symptoms currently reported. PHYSICAL EXAMINATION: GENERAL: Well-developed, well-nourished, in mild distress, sitting in bed comfortably. EYES, EARS, NOSE, THROAT EXAM: PERRLA, EOMI. Normal ENT inspection. TMs normal. Pharynx normal. NECK: Normal inspection, nontender, supple, full range of motion. RESPIRATORY: Chest is nontender. LUNGS: Clear. Normal breath sounds. CARDIAC: Regular rate rhythm. Bilateral lower extremity edema. No gallops, no JVD, no murmur. Peripheral pulses, 2+ carotid; 1+ dorsal pedis, 1 bilateral. ABDOMEN: Normal bowel sounds, nontender, soft, no organomegaly, no pulsatile masses. PELVIC: Normal external exam. BACK: Normal inspection. No CVA tenderness, no vertebral tenderness. EXTREMITIES: The patient does have tenderness along the left lower extremity radiating up and down from the knee to the ankle. There IS minimal erythema, but there swelling of the tissues consistent with previous diagnosis of cellulitis. There very minimal effusion in the knee. The patient does have range of motion of the extremity from 2 degrees to 105 degrees, which is relatively painless. The patient does have ankle range of motion, internal range of motion without evidence of significant paresthesia or numbness. Negative calf tenderness, negative Homans', negative Hall's test. NEUROLOGIC: Cranial nerves intact as tested. Normal mood and affect, paresthesias of bilateral lower extremities consistent with diabetes, neuropathy. SKIN: She does have minimal erythema distal to the knee. LYMPHATICS: [place] [address] CONSULTATION Name: HARPREET STEPHENSON Room: [address] IN M.R.#: [id number] Admission: 08/28/19 Attend Phys: Denisa Jackson MD Discharge: 08/31/19 Date of : 49 Report #: [id number] RADIOLOGIC EVALUATION: CT angiogram of the lower extremity does show blockages as previously discussed with Vascular Surgery. At this time, there is no surgical intervention plan. X-ray of the knee shows mild to moderate arthritic change with osteophytes. No significant effusion and no evidence of bone lesions, no destructive process. LABORATORY DATA: Chemistry, CMP panel is noted with utilizing normal exam. PT/INR is 1.0. White blood cell counts 9 and 10.9 respectively. Hemoglobin 14.4, platelet count 228, absolute neutrophils 7.8. ASSESSMENT AND PLAN: Left lower extremity cellulitis. Vascular has been consulted and has given their input. The knee at this time does show only minimal inflammation and effusion. We will hold off on any aspirations due to significant cellulitis and tracking bacteria into the knee. Continue IV antibiotics as per protocol and transferred to work when the patient is stable. I would like to see the patient back in 1 week in the Orthopedic Clinic. Please call for appointment. Please call with any questions or concerns. Thank you for allowing me to participate in the patient's care. <ELECTRONICALLY SIGNED> By: Rudolph Michael II, DO 09/01/19 1226 0841 1006Rudolph Michael II, DO /nt
== END 2019-08-31 14:15 | disposition home health service (06) | DRG 603 ==
LOC: M.ERS 11:05 → M.TBA-ER 12:46 → M.3W 12:46
PROVIDERS: Family Medicine; ADMIT Internal Medicine; ATTEND Internal Medicine
PROC: 05HY33Z Insertion of Infusion Device into Upper Vein, Percutaneous Approach (ICD-10-PCS; principal; 2019-08-28)
DX: L03.116 Cellulitis of left lower limb (principal); E44.1 Mild protein-calorie malnutrition; Z90.49 Acquired absence of other specified parts of digestive tract; I10 Essential (primary) hypertension; E11.40 Type 2 diabetes mellitus with diabetic neuropathy, unspecified; M19.90 Unspecified osteoarthritis, unspecified site; F17.210 Nicotine dependence, cigarettes, uncomplicated; M25.562 Pain in left knee; G89.29 Other chronic pain; I25.10 Atherosclerotic heart disease of native coronary artery without angina pectoris; Z85.3 Personal history of malignant neoplasm of breast; Z92.21 Personal history of antineoplastic chemotherapy; Z90.11 Acquired absence of right breast and nipple; Z90.710 Acquired absence of both cervix and uterus; Z95.5 Presence of coronary angioplasty implant and graft; Z88.2 Allergy status to sulfonamides; Z88.8 Allergy status to other drugs, medicaments and biological substances; Z68.32 Body mass index [BMI] 32.0-32.9, adult

== ENCOUNTER → 2020-02-02 | Outpatient (CLI) | payer MEDICARE, OTHER ==
[~2020-02-02] MED LIST changes: +NEURONTIN 300M300 M2 PO
--- NOTE | 2020-02-08 14:33 | CARDNUC ---
[place] [address] CARDIAC NUCLEAR IMAGING REPORT Name: HARPREET STEPHENSON PAMELA Room: [facility]#: [id number] Admission: 02/02/20 Attend Phys: Paul Duarte, Discharge: Date of : 49 Date of Service: 02/08/20 1433 Report #: [id number] THIS REPORT FOR: cc: Irving Hayden John E. DO Liston, Michael J. MD [facility] ~ APPROVED REPORT Study performed: 02/02/2020 09:40:39 Indication: CAD , CAD s/p PCI Patient Location: Out-Patient Stress Tech: Bettina Colon Stress Nurse: Gabriella Salas RN Ht: 5 ft 3 in Wt: 178 lbs BSA: 1.84 m2 BMI: 31.52 Medical History Medical History: CAD s/p stent, Carotid artery disease, Current Smoker, Diabetic Noninsulin, HTN, Hyperlipidemia, PVD Medications: amlodipine, asa 81, atorvastatin, zetia, priniside, metoprolol Allergies: acetominophen, alendronate, opiates, sulfa, venlafaxine Cardiac Risk Factors: Age, Current Smoker, Diabetes (non-insulin), HTN, Hyperlipidemia, PVD Previous Cardiac Procedures: PCI Exercise History: Indeterminate Meds Held (24 hrs): metoprolol Resting Data Rest SPECT myocardial perfusion imaging was performed in supine position 30 minutes following the intravenous injection of 10.3 mCi of Tc-99m Sestamibi. Time of rest injection: 08:00 The images were gated to evaluate regional wall motion and calculate left ventricular ejection fraction. Administration Route: IV Administration Site: Left Hand Pharmacologic Stress Pharmacologic stress test was performed by injecting Regadenoson 0.4 mg IV push over 10-15 seconds immediately [place] [address] CARDIAC NUCLEAR IMAGING REPORT Name: HARPREET STEPHENSON Room: [facility]#: [id number] Admission: 02/02/20 Attend Phys: Paul Duarte, Discharge: Date of : 49 Date of Service: 02/08/20 1433 Report #: [id number] injection of 33.7 mCi of Tc-99m Sestamibi. Time of stress injection: 09:30 Administration Route: IV Administration Site: Left Hand Heart Rate at time of stress injection: 115 bpm. Gated Stress SPECT was performed 40 minutes after stress injection. The images were gated to evaluate regional wall motion and calculate left ventricular ejection fraction. Prone imaging was performed. Stress Test Details Stress Test: Pharmacologic stress was paired with low level exercise. Reason for pharmacologic stress test: physical limitation. HR Max Heart Rate (APMHR): 148 bpm Resting HR: 76 bpm Target HR (85% APMHR): 125 bpm Max HR Achieved: 115 bpm % of APMHR: 77 Recovery HR: 88 bpm BP Resting BP: 160/68 mmHg Max BP: 213/73 mmHg Recovery BP: 177/78 mmHg ECG Resting ECG: Sinus Rhythm Stress ECG: Sinus Tachycardia ST Change: Downsloping ST depression Maximum ST Deviation: 0.5 mm Arrhythmia: None Recovery ECG: Sinus Rhythm Recovery ST Change: Downsloping ST depression Recovery ST Deviation: 0.5 mm Recovery Arrhythmia: None Clinical Reason for Termination: Completed protocol The patient tolerated the walking Lexiscan protocol without significant cardiac symptoms. Stress ECG Conclusion Baseline twelve-lead EKG shows sinus rhythm without significant ST segment or T wave abnormality. EKGs obtained during and post walking Lexiscan protocol show sinus rhythm and sinus tachycardia with 0.[place] [address] CARDIAC NUCLEAR IMAGING REPORT Name: HARPREET STEPHENSON Room: [facility]#: [id number] Admission: 02/02/20 Attend Phys: Paul Duarte, Discharge: Date of : 49 Date of Service: 02/08/20 1433 Report #: [id number] segment depression noted in the lateral leads. There were no stress-induced arrhythmias. Study Quality Study: Good Artifact: Mild Diaphragmatic artifact Study Data At rest, the left ventricular ejection fraction was 62%.. Post stress, the left ventricular ejection was 62%.. TID = 1.00. Perfusion Perfusion images obtained in the supine position at rest and post walking Lexiscan stress show a small in size moderate intensity defect of the basal inferior wall that resolves with post-rest prone imaging suggesting diaphragmatic attenuation artifact. No other significant fixed or reversible defects are identified. Wall Motion Global LV systolic function is normal. There is a septal wall motion abnormality noted of uncertain significance. Nuclear Conclusion ECG Findings: equivocal Clinical Findings: negative for ischemia Nuclear Findings: negative for ischemia Exercise Capacity: not assessed Left Ventricular Function: Preserved Risk Study: low Perfusion study showed no defect to suggest infarct or ischemia. Left ventricular systolic function is preserved on gated studies. This is a low risk study. <Conclusion> Baseline twelve-lead EKG shows sinus rhythm without significant ST segment or T wave abnormality. EKGs obtained during and post walking Lexiscan protocol show sinus rhythm and sinus tachycardia with 0.[address] segment depression noted in the lateral leads. There were no stress-induced arrhythmias. <ELECTRONICALLY SIGNED> By: Paul Duarte MD, FACC 02/08/20 1433 1433 1433 Paul Duarte MD, FACC /INF
== END ==
LOC: M.NUC 01-19 09:25
PROVIDERS: ATTEND Internal Medicine Cardiovascular Disease
DX: R00.0 Tachycardia, unspecified (principal); I25.10 Atherosclerotic heart disease of native coronary artery without angina pectoris

== ENCOUNTER → 2020-08-22 | Outpatient (CLI) | payer MEDICARE | LOC: M.RAD 10:36 | PROVIDERS: ATTEND Internal Medicine Hematology & Oncology | DX: Z12.31 Encounter for screening mammogram for malignant neoplasm of breast (principal); N64.89 Other specified disorders of breast ==

== ENCOUNTER → 2020-09-01 | Outpatient (CLI) | payer MEDICARE, OTHER | LOC: M.RAD 08-24 15:54 | PROVIDERS: ATTEND Internal Medicine Hematology & Oncology | DX: J98.4 Other disorders of lung (principal); Z85.3 Personal history of malignant neoplasm of breast ==

== ENCOUNTER → 2020-09-14 | Outpatient (CLI) | payer MEDICARE, OTHER | LOC: M.MRI 10:42 | PROVIDERS: ATTEND Nurse Practitioner Family | DX: C79.51 Secondary malignant neoplasm of bone (principal); C41.4 Malignant neoplasm of pelvic bones, sacrum and coccyx; M47.816 Spondylosis without myelopathy or radiculopathy, lumbar region ==

== ENCOUNTER → 2020-11-06 | Outpatient (CLI) | payer MEDICARE, OTHER ==
[~2020-11-06] VITALS: Ht 157.5 cm; Wt 80.3 kg
[~2020-11-06] MED LIST changes: +CRESTOR40 MG PO
[2020-11-06 09:09] VITALS: BP 156/103
[2020-11-06 09:13] LABS: HEMATOCRIT 36.7 % (37.0-47.0); HEMOGLOBIN 12.6 gm/dL (12.0-15.0); MCH 31.4 pg (26.0-34.0); MCHC 34.3 g/dL (28.0-37.0); MCV 91.4 fL (80.0-100.0); MPV 8.4 fl. (7.2-11.1); RBC 4.02 mil/uL (4.20-5.00); RDW-CV 14.6 % (10.5-14.5); WBC 4.4 thou/uL (4.0-11.0)
[2020-11-06 09:24] LABS: APTT 23.9 Seconds (25.0-31.3); PROTIME 10.3 Seconds (9.20-11.50)
[2020-11-06 09:25] LABS: ALBUMIN 3.5 g/dL (3.4-5.0); CALCIUM 9.1 mg/dL (8.5-10.1); CREATININE 0.9 mg/dL (0.6-1.3); TOTAL BILIRUBIN 0.4 mg/dL (<0.1-1.0); TOTAL PROTEIN 7.2 g/dL (6.4-8.2)
[2020-11-06 11:30] VITALS: BP 117/65
[2020-11-06 11:44] VITALS: BP 103/65
[2020-11-06 12:00] VITALS: BP 103/58
[2020-11-06 12:15] VITALS: BP 103/58
== END | disposition home or self-care (01) ==
LOC: M.INT 08:18
PROVIDERS: Internal Medicine Cardiovascular Disease; ATTEND Internal Medicine Hematology & Oncology
DX: Z45.2 Encounter for adjustment and management of vascular access device (principal); C50.911 Malignant neoplasm of unspecified site of right female breast

== ENCOUNTER → 2021-02-27 | Outpatient (CLI) | payer MEDICARE | LOC: M.NUC 09:46 | PROVIDERS: ATTEND Internal Medicine Hematology & Oncology | DX: C50.919 Malignant neoplasm of unspecified site of unspecified female breast (principal); C79.9 Secondary malignant neoplasm of unspecified site; M19.042 Primary osteoarthritis, left hand; M19.041 Primary osteoarthritis, right hand; M19.022 Primary osteoarthritis, left elbow; M19.021 Primary osteoarthritis, right elbow ==